=== PATIENT | female | born 1955 | race Caucasian/White ===

== ENCOUNTER 2017-05-17 12:07 | Outpatient (CLI) | payer OTHER ==
--- NOTE | 2017-05-17 14:13 | Diagnostic Imaging Report ---
LUDIVINA QUISPE (DRESSMAKING TEACHER) - OP [facility] [address] [facility] [address], [place]. [address] Report Submission Date: May 17, 2017 12:46:04 PM CDT Patient Study Name: LUDIVINA WEBER Date: May 17, 2017 12:15:19 PM CDT Modality Type: CR Gender: F Description: CHEST : 51 Institution: [facility] Physician: LUDIVINA QUISPE (DRESSMAKING TEACHER) - OP Examination: PA and lateral chest. History: Evaluate lung bro. Findings: PA lateral chest demonstrate a normal cardiac and mediastinal silhouette. No focal infiltrate. No effusion. No blunting of the costophrenic margins. Right cardiophrenic fat pad. Osseous structures are appropriate for age. Impression: No acute pulmonary process. Electronically signed on May 17, 2017 12:46:04 PM CDT by: Guillermo ADDISON
== END 2017-05-17 12:08 ==
LOC: RAD 12:07
PROVIDERS: ATTEND Nurse Practitioner Family
DX: R06.02 Shortness of breath (principal); R05 Cough
CPT/HCPCS: 71020